=== PATIENT | female | born 2000 | race Caucasian/White ===

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

== ENCOUNTER 2021-01-07 08:40 | Outpatient (CLI) | payer BC, MEDICAID, SELFPAY ==
[2021-01-07 08:49] VITALS: BMI 24.1
[2021-01-07 08:56] VITALS: PULSE 67; TEMP 36.8; O2SAT 98
[2021-01-07 08:58] VITALS: BP 116/58
[2021-01-07 08:59] VITALS: PULSE 63; PULSE 8; O2SAT 82; O2SAT 97
[2021-01-07 09:52] LABS: Mucous, Urine 0 SEEN /hpf (<or=2+)
[2021-01-07 09:56] LABS: Color, Urine Yellow (Yellow); Glucose, Dipstick Normal (Normal); Ketone-Dipstick Negative (Negative); Leukocyte Esterase-Dipstick 25 /ul (Negative); Nitrite-Dipstick Negative (Negative); Occult Blood-Urine 250 /ul (Negative); Protein-Dipstick 500 mg/dl (Negative); Specific Gravity, Urine 1.015 (1.002-1.030); Urine Bilirubin Dipstick Negative (Negative); Urine Clarity Cloudy (Clear); Urine Urobilinogen Normal (Normal)
[2021-01-07 10:20] LABS: Red Blood Cells-Urine > 100 SEEN /hpf (0-5); Squamous Epithelial Cells - UA 0-5 SEEN /hpf (5-10); White Blood Cells 0-5 SEEN /hpf (0-5)
[2021-01-07 10:21] LABS: Bacteria RARE /hpf (None Seen)
--- NOTE | 2021-01-07 21:53 | OB.TRI.NOTE ---
HPI - General HPI Narrative DYLAN MIHCELLE, is a 20 F who presents at 25 4/7 weeks gestation with vaginal pain and pressure. PFSH PFSH Home Medications doxylamine succinate [Sleep Aid (doxylamine)] 25 mg PO PRN PRN 10/30/20 [History Last Taken Unknown] ondansetron 4 mg PO Q6H 10/30/20 [History Last Taken Unknown] [id number] [] 1 tab PO DAILY 10/30/20 [History Last Taken Unknown] promethazine 12.5 mg PO Q6H PRN PRN 10/30/20 [History Last Taken Unknown] pyridoxine (vitamin B6) [Vitamin B-6] 10/30/20 [History Last Taken Unknown] bacitracin 1 applic EACH EYE Q8H 7 Days #15 g 12/11/20 [Rx Last Taken Unknown] cephalexin 500 mg PO Q6H 7 Days #28 cap 12/11/20 [Rx Last Taken Unknown] gentamicin 1 applic RIGHT EYE BID #3.5 g 12/25/20 [Rx Last Taken Unknown] Allergy/AdvReac Type Severity Reaction Status Date / Time No Known Allergies Allergy Verified 12/10/20 22:34 Social History Smoking Status: Never smoker NST FHR Rate Baby A Baseline: 135 Variability:: Moderate Accelerations:: 10 x 10 Decelerations:: Variable NST Reactive:: Appropriate for gestational age FHR Rate Baby B Uterine Activity:: 0/10 Assessment & Plan (1) Cystitis: PLAN: No evidence of labor U/A suggests UTI Rx Macrobid sent to pharmacy d/c home
== END 2021-01-07 11:10 | disposition home or self-care (01) ==
LOC: WPOUT 08:44 → WP 08:45
PROVIDERS: PCP Preventive Medicine Occupational Medicine; Referring Provider Obstetrics & Gynecology; Visit Provider Obstetrics & Gynecology
DX: O23.12 Infections of bladder in pregnancy, second trimester (principal); Z3A.25 25 weeks gestation of pregnancy
CPT/HCPCS: 59025; 59050; 81001; 87086; 87088; 99218; G0378

== ENCOUNTER → 2021-03-21 | Outpatient (CLI) | payer BC, MEDICAID, SELFPAY | END | disposition home or self-care (01) | LOC: LABSPEC 11:50 | PROVIDERS: PCP Preventive Medicine Occupational Medicine; Visit Provider Student in an Organized Health Care Education/Training Program | DX: Z36.85 Encounter for antenatal screening for Streptococcus B (principal) | CPT/HCPCS: 87081 ==

== ENCOUNTER 2021-04-04 23:55 | Outpatient (CLI) | payer BC, MEDICAID, SELFPAY ==
[2021-04-05 00:13] VITALS: BP 131/74; PULSE 78; O2SAT 99
[2021-04-05 00:17] VITALS: TEMP 37.1
[2021-04-05 00:25] VITALS: BMI 27.6
[2021-04-05 00:48] LABS: ROM Internal Control Test YES-OK TO RESULT pt. (Internal QC); ROM Patient Test Negative (Negative)
--- NOTE | 2021-04-05 10:47 | OB.TRI.NOTE ---
HPI - General HPI Narrative DYLAN MICHELLE, is a 20 F who presents to labor and delivery with some leaking of fluid. Minimal contractions have been noted by the patient. PFSH PFSH Home Medications ondansetron 4 mg PO Q6H 10/30/20 [History Last Taken Unknown] [id number] [] 1 tab PO DAILY 10/30/20 [History Last Taken Unknown] Allergy/AdvReac Type Severity Reaction Status Date / Time No Known Allergies Allergy Verified 04/05/21 00:25 Social History Smoking Status: Never smoker NST FHR Rate Baby A NST Reactive:: Yes FHR Category:: Category I Assessment & Plan (1) Vaginal discharge during : PLAN: 38-week 4-day gestation with some leaking of fluid. Likely normal vaginal discharge during as ROM test was negative. May also be just some urine leaking. Reactive nonstress test. Will discharge to home with routine instructions.
== END 2021-04-05 01:05 | disposition home or self-care (01) ==
LOC: WPOUT 04-05 00:03 → WP 04-05 00:03
PROVIDERS: PCP Preventive Medicine Occupational Medicine; Visit Provider Obstetrics & Gynecology
DX: O26.893 Other specified pregnancy related conditions, third trimester (principal); N89.8 Other specified noninflammatory disorders of vagina; Z3A.38 38 weeks gestation of pregnancy
CPT/HCPCS: 59025; 59050; 84112; 99218; G0378

== ENCOUNTER → 2021-04-08 | Outpatient (CLI) | payer BC, MEDICAID, SELFPAY | END | disposition home or self-care (01) | LOC: LABSPEC 16:32 | PROVIDERS: PCP Preventive Medicine Occupational Medicine; Visit Provider Student in an Organized Health Care Education/Training Program | DX: Z20.822 Contact with and (suspected) exposure to COVID-19 (principal) | CPT/HCPCS: 87635; U0005; U0003 ==

== ENCOUNTER 2021-04-13 12:15 | Inpatient (IN) | payer BC, MEDICAID, SELFPAY ==
[2021-04-13] VITALS (29 sets, daily range): BP systolic 114–136; BP diastolic 58–84; PULSE 63–89; RESP 16–18; TEMP 36.1–36.9; O2SAT 97–100; BMI 27.3
--- NOTE | 2021-04-13 09:28 | PCM.PN.BLA ---
Progress Note 20-year-old G1 at 39/2 weeks presenting with contractions. Cervix 3 cm per RN on admission to triage, repeat in 2 hours also 3 cm. status reassuring, NST reactive. heart rate 125/moderate variability/+ accelerations/no decelerations. [place] irregular contractions. No evidence of active labor at this time. Patient has been 3 cm since her visit 1 week ago. Discharge home with labor precautions. All questions answered. She does have induction scheduled on Wednesday. Patient seen.
[2021-04-13] MEDS: Lactated Ringers 1,000 ML 200 ML IV (12:35)
[2021-04-13 12:55] LABS: Absolute Lymphocyte Count 1.56 X10^3/uL (0.83-4.51); Absolute Neutrophil Count 9.3 X10^3/uL (2.0-7.7); Basophil# 0.02 X10^3/uL; Basophil% 0.2 % (0-1); Eosinophil# 0.03 X10^3/uL; Eosinophils% 0.3 % (0-5); Hematocrit 32.3 % (37-47); Hemoglobin 10.6 g/dL (12.0-15.0); Lymphocyte # 1.56 X10^3/ul (0.83-4.51); Lymphocyte % 13.5 % (19-41); Mean Corp Hgb Conc 32.8 g/dL (32-36); Mean Corpuscular Hgb 28.3 pg (27.0-32.0); Mean Corpuscular Volume 86.4 fL (81-99); Mean Platelet Vol. 11.1 fl (6.2-12.0); Monocyte# 0.61 X10^3/uL; Monocyte% 5.3 % (0-10); NRBC Flagged by Analyzer 0 % (0-5); Neutrophil # 9.27 X10^3/uL (2.7-7.7); Neutrophil % 80.3 % (47-70); Platelet Count 279 K/mm3 (150-450); RBC Distribution Width CV 12.8 % (11.6-14.6); Red Blood Count 3.74 M/mm3 (4.2-5.4); White Blood Count 11.5 K/mm3 (4.4-11.0)
[2021-04-13] MEDS: Oxytocin 30 units/NS 500 ml 30 UNITS/500 ML IV.SOLN 334 UNITS IV (13:20)
--- NOTE | 2021-04-13 13:38 | PCM.HP.BLA ---
History and Physical Date of Admission: 04/13/21 20-year-old G1 at 39/2 weeks, ALEENA 04/18/2021 by 5-week ultrasound, admitted in active labor. Patient reports rupture membranes and worsening contractions. Denies vaginal bleeding. Reports movement. Denies headache, vision changes, chest pain or shortness of breath, nausea or vomiting, diarrhea constipation, fevers or chills. complicated by: Nothing OB history: G1 Medical history: Denies Surgical history: None Allergies no known drug allergies Family history: Noncontributory Social history: Denies tobacco, alcohol, drug use Medications: vitamin, Zofran panel B positive HIV nonreactive Syphilis nonreactive Hepatitis C nonreactive Hepatitis B nonreactive Gonorrhea and chlamydia negative/negative GBS neg 03/21 Rubella immune CBC today: WBC 11.5, hemoglobin/hematocrit 10.6/32.3, platelets 279 Assessment/plan: 20-year-old G1 at 39/2 weeks admitted in active labor. Routine orders GBS negative Covid negative today Assessment & Plan Assessment/Plan (1) Active labor:
--- NOTE | 2021-04-13 13:44 | EX.PCM.OBRPT ---
Maternal Data Information Final ALEENA: 04/18/21 Final ALEENA Source: US <20 weeks Vaginal Delivery Operative Information Date of Procedure: 04/13/21 Pre-Operative Diagnosis: [place] intrauterine Post-Operative Diagnosis: [place] intrauterine Surgery / Procedure Performed: Spontaneous Vaginal Delivery Type of Anesthesia: None Estimated Blood Loss: 250cc Findings Description of Procedure: Spontaneous vaginal delivery of viable infant female. Nuchal cord x1, loose, delivered through. Baby to mom. Cord clamped and cut. Spontaneous delivery of placenta. Bilateral labial abrasions, hemostatic. Small non expanding hematoma of labia. Infant A Gender: Female (1 minute): 8 (5 minute): 9
[2021-04-13] MEDS: 0.9% Saline Lock 10 ML Syringe IV (16:45)
[2021-04-14] VITALS (7 sets, daily range): BP systolic 109–117; BP diastolic 53–55; PULSE 59–74; RESP 16–18; TEMP 36.2–36.5; O2SAT 97
--- NOTE | 2021-04-14 00:52 | PN.OBGYN_ITS ---
Subjective Subjective day 1. Feeling well. States she had some burning with urination the first couple times she voided, this is resolved. Bleeding minimal. Objective Data Objective Data Vital Signs: Vital Signs Temp Pulse Resp BP Pulse Ox 98.2 F 72 16 115/67 97 04/13/21 23:42 04/13/21 23:42 04/13/21 20:21 04/13/21 23:42 04/13/21 20:21 Oxygen Delivery Method Room Air Weight: 69.853 kg Body Mass Index (BMI) 27.3 Intake & Output: Intake and Output for Last 24 Hours 04/12/21 04/13/21 04/14/21 23:59 23:59 23:59 Intake Total 650 / 650 Output Total 200 / 200 Balance 450 / 450 Lab / Micro Data Result Diagrams: 04/13/21 12:35 Labs: Laboratory Results - last 24 hr 04/13/21 12:35: WBC 11.5 H, RBC 3.74 L, Hgb 10.6 L, Hct 32.3 L, MCV 86.4, MCH 28.3, MCHC 32.8, RDW Std Deviation 40.0, RDW Coeff of Franc 12.8, Plt Count 279, MPV 11.1, Immature Gran % (Auto) 0.400, Neut % (Auto) 80.3 H, Lymph % (Auto) 13.5 L, [place] % (Auto) 5.3, Eos % (Auto) 0.3, Baso % (Auto) 0.2, Absolute Neuts (auto) 9.3 H, Absolute Lymphs (auto) 1.56, Nucleated RBC % 0 04/13/21 12:35: Blood Type B POSITIVE, Antibody Screen NEGATIVE Micro: Microbiology 04/13/21 12:45 Nasal Secretion SARS-CoV-2 Antigen (Rapid) - Final Physical Exam Const alert, oriented x3 and no apparent distress HEENT normocephalic Head and Scalp: atraumatic Neck full ROM Resp normal respiratory effort Cardio regular rate GI normal to inspection, nondistended, normoactive bowel sounds GI Narrative: Uterus 2 cm below umbilicus Back/Spine normal ROM Extremity normal to inspection Extremity Narrative: Minimal pedal edema Neuro no focal motor deficits and no sensory deficits noted Psych mental status grossly normal and affect normal Assessment & Plan (1) Vaginal delivery: PLAN: day 1 status post . Formula feeding. Desires home- going today. Will discharge later this afternoon/early evening. 2-week telehealth visit in 6-week . (2) state:
--- NOTE | 2021-04-14 00:54 | PCM.DC ---
Discharge Instructions Diet Discharge Diet: No restrictions Activity Discharge Activity: Return to Normal Activity and May Shower May resume sexual activity in: 4-6 weeks Weight Bearing Status: Weight bearing as tolerated Lifting Restrictions: No greater than 25 pounds Dressing / Incision Call your doctor if you observe: Fever of 101 or Higher, Change in Color, Inability to urinate, Using more than 1 pad per hour, Shortness of breath, Dizziness, Swelling in the ankles, Chest pain and Calf discomfort Follow Up Care Please Follow Up With: Una Hampton DO When: 2-week telehealth appointment and 6-week visit Test Results: Test results from this visit will be discussed in further detail at your follow-up appointment, if applicable. Discharge Plan Admission Admit Date/Time: 04/13/21 12:15 Attending Provider: Una Hampton Primary Care Provider: Nicholas Cespedes Discharge Orders/Prescriptions Prescriptions: No Action 1 mg Tablet 1 tab PO DAILY RF: 0 ondansetron 4 mg tablet,disintegrating 4 mg PO Q6H RF: 0 Referrals / Follow Up: Nicholas Cespedes DO [Primary Care Provider] - Disposition Disposition (needs filled in before D/C Order can be placed): Home, Self Care
--- NOTE | 2021-04-14 14:30 | CASEMGMT ---
Social Work Brief Assessment Labor and Delivery Unit Patient residential address: [address] [place] [address]., [address], [place] [id number] Phone number: [phone] Date of Referral/Notification: 04/13/2021 Time of Referral: [id number] Referred By: Dr. Una Hampton Date of Intervention: 04/14/2021 Time of Intervention: 1415 F Reason for Referral: 20-year-old mom, first-time mom, resources Informant: Medical record and mother of baby (MOB) Johnathan Waters History: MOB is a 20-year-old single female, 1 para 0 now 1 after delivering a baby girl Janelle Bro on 04/13/2021. Father of baby alberto FOB) is Maximiliano Bro ( 2..2000). Parents have been together for 2 years. MOB denies violence. Both parents are employed with the MOB most recently working at a local [employer]. care started at 6 weeks and regularly thereafter. Infant delivered at 39 point weeks gestation. Apgars 8 and 9 at 1 and 5 minutes of life. weight 5 pounds 14 ounces. MOB has a high school education and denies any issues with reading, writing, or learning. MOB denies any type of emotional health history and no history of suicidal ideations. History of substance use. No drug screens noted in record. MOB reports to have Medicaid and WIC Assessment: Met with MOB in room, introducing self and social work role. MOB cooperative and pleasant. Appropriate affect and mood. MOB reports to have all necessary supplies to care for the baby including safe sleep space and car seats. MOB to bottlefeed the baby, and reports to have bottles and formula. Plans to use [facility] for assistance with this. Reports to have adequate support from both sides of the family, MOB's and FOB's. Reports to feel connection with the baby and denies any anxiety. Educated to mood and anxiety disorders. He had shaken baby and safe sleep as well. MOB receptive to early [facility] referral for increased support at home. MOB signed early [facility] referral form. Fax referral form to confirm fax community action. No voiced concerns by nursing staff regarding parent/child interactions or bonding. Plan: MOB and will discharge home when medically ready. MOB is connected with job and family services and [facility]. Early [facility] referral was made. No further needs requested or indicated. -AIDAN Escalera, CINDI *This note was generated with Edúk[employer] dictation software. It may contain incorrect words, spelling, and punctuation that were not noted in review of the chart prior to signing*
== END 2021-04-14 15:20 | disposition home or self-care (01) | DRG 807 ==
LOC: WPOUT 12:18 → WP 12:18
PROVIDERS: Admitting Provider Student in an Organized Health Care Education/Training Program; PCP Preventive Medicine Occupational Medicine; Visit Provider Student in an Organized Health Care Education/Training Program
DX: O69.81X0 Labor and delivery complicated by cord around neck, without compression, not applicable or unspecified (principal); Z37.0 Single live birth; Z3A.39 39 weeks gestation of pregnancy; O71.82 Other specified trauma to perineum and vulva; R30.9 Painful micturition, unspecified
CPT/HCPCS: 59025; 85025; 86850; 86900; 86901; 87426; 99218; J7120; A4216; G0378

== ENCOUNTER 2021-05-05 03:25 | Emergency (ER) | payer BC, MEDICAID, SELFPAY ==
[2021-05-05 03:26] VITALS: BP 128/81; PULSE 89; RESP 16; TEMP 36.6; O2SAT 98; BMI 25.1
--- NOTE | 2021-05-05 03:37 | ED.VIS.FEGU ---
HPI HPI - Female History of Present Illness Chief Complaint: Vag Bleeding Narrative Narrative: This is a 1 para 1 female who delivered at about 39 weeks 3 days gestation. Infant was delivered 3 weeks and 1 day ago per patient. She had abrasion and not expanding hematoma but no episiotomy or sutures. She has had bleeding ever since delivery. She had some more bleeding tonight with some clots. She is not having fevers or chills. No abdominal pelvic pain. No lightheadedness. No palpitations. She did have spontaneous delivery of placenta per the delivery report. She is not on any control, IUD, implantable control. She did have sexual intercourse yesterday but had no discomfort or problems. PFSH PFSH Home Medications [id number] [] 1 tab PO DAILY 10/30/20 [History Last Taken Unknown] Allergy/AdvReac Type Severity Reaction Status Date / Time No Known Allergies Allergy Verified 05/05/21 03:29 Social History Smoking Status: Never smoker ROS ROS ED Constitutional Constitutional ED: Denies chills, fever(s), subjective or sweats Eyes Eyes: Denies blurry vision ENT ENT ED: Denies rhinorrhea Cardiovascular Cardiovascular: Denies chest pain Respiratory/Chest Respiratory/Chest: Denies cough or dyspnea Gastrointestinal Gastrointestinal: Denies abdominal pain, constipation, diarrhea, melena, nausea or vomiting Genitourinary Genitourinary ED: Reports other Details: See history of present illness ; Denies dysuria, hematuria or urinary frequency Musculoskeletal Musculoskeletal: Denies myalgias Neurologic Neurologic: Denies headache(s) Endocrine Endocrinology: Denies polydipsia or polyuria Hematologic/Lymphatic Hematologic/Lymphatic: Denies easy bruising Allergic/Immunologic Allergic/Immunologic ED: Denies mouth swelling or urticaria EXAM Physical Exam Const Vital Signs: 05/05/21 03:26 Temperature 97.8 F Temperature Source Temporal Pulse Rate 89 Respiratory Rate 16 Blood Pressure 128/81 H Blood Pressure Mean 96 Pulse Ox 98 Oxygen Delivery Method Room Air Positive well nourished and well developed General Appearance ED: well developed and NAD; Negative for pallor HEENT Reports moist mucous membranes Eyes General Eye ED: Negative for pale conjunctiva or scleral icterus Neck no JVD Chest Wall inspection of chest normal Resp normal respiratory effort and clear to auscultation bilaterally Cardio regular rate and regular rhythm GI normal to inspection, nondistended, normoactive bowel sounds, soft to palpation, non-tender and non-distended no CVA tenderness Back/Spine no CVA tenderness Extremity normal to inspection General Extremety ED: Negative for edema General Extremity: Negative for edema Neuro Sensorium / Orientation: alert Psych mental status grossly normal Mood & Affect: Negative for depressed or tearful Skin no rashes or lesions noted General Skin Exam: Negative for jaundice or pallor MDM MDM MDM Narrative Medical decision making narrative: Patient CBC shows mild elevation of white count and decreased hemoglobin. However, these are essentially the same values as at the end of March at around the time of childbirth. hormone is negative for with a quant of 2. Pelvic exam shows normal external genitalia. No tears. No hematoma. No vaginal lacerations. There is a small amount of blood at the cervical os with some small darker clot. No blood is expressed with palpation on the uterus during exam. There is no tenderness on exam. No sign of discharge. No abnormal odor. No injuries. I think this is likely bleeding as she patient has hormonal changes related to and development of return of menstrual cycle. She is on no control and is not breast-feeding. I think discharge is appropriate. She will return with heavier bleeding, more clots, fever, pain, lightheadedness or any other concerns. She has her follow-up OB appointment in about 2-1/2 weeks. Lab Data Labs: Laboratory Results - last 24 hr 05/05/21 05/05/21 03:50 03:50 WBC 11.8 H RBC 3.95 L Hgb 10.8 L Hct 34.9 L MCV 88.4 MCH 27.3 MCHC 30.9 L RDW Std Deviation 42.1 RDW Coeff of Franc 13.0 Plt Count 352 MPV 10.7 Immature Gran % (Auto) 0.300 Neut % (Auto) 81.3 H Lymph % (Auto) 13.9 L Atkinson % (Auto) 3.8 Eos % (Auto) 0.4 Baso % (Auto) 0.3 Absolute Neuts (auto) 9.6 H Absolute Lymphs (auto) 1.64 Nucleated RBC % 0 HCG, Quant 2 Discharge Plan Triage Chief Complaint: Vag Bleeding ED Provider: Erik Todd Dx/Rx/DC Orders Clinical Impression: Vaginal bleeding Instructions: Understanding Uterine Bleeding Prescriptions: No Action 1 mg Tablet 1 tab PO DAILY RF: 0 Primary Care Provider: Nicholas Cespedes Referrals: Una Hampton DO [STAFF PHYSICIAN] - [facility] appointment Nicholas Cespedes DO [Primary Care Provider] - Disposition Disposition: Home, Self Care
[2021-05-05 04:04] LABS: Absolute Lymphocyte Count 1.64 X10^3/uL (0.83-4.51); Absolute Neutrophil Count 9.6 X10^3/uL (2.0-7.7); Basophil# 0.04 X10^3/uL; Basophil% 0.3 % (0-1); Eosinophil# 0.05 X10^3/uL; Eosinophils% 0.4 % (0-5); Hematocrit 34.9 % (37-47); Hemoglobin 10.8 g/dL (12.0-15.0); Lymphocyte # 1.64 X10^3/ul (0.83-4.51); Lymphocyte % 13.9 % (19-41); Mean Corp Hgb Conc 30.9 g/dL (32-36); Mean Corpuscular Hgb 27.3 pg (27.0-32.0); Mean Corpuscular Volume 88.4 fL (81-99); Mean Platelet Vol. 10.7 fl (6.2-12.0); Monocyte# 0.45 X10^3/uL; Monocyte% 3.8 % (0-10); NRBC Flagged by Analyzer 0 % (0-5); Neutrophil # 9.55 X10^3/uL (2.7-7.7); Neutrophil % 81.3 % (47-70); Platelet Count 352 K/mm3 (150-450); RBC Distribution Width SD 42.1 fl (35.1-43.9); Red Blood Count 3.95 M/mm3 (4.2-5.4); White Blood Count 11.8 K/mm3 (4.4-11.0)
[2021-05-05 04:24] LABS: hCG Titer Quant., Serum 2 mIU/mL (1-3)
[2021-05-05 04:53] VITALS: BP 118/78; PULSE 88; RESP 16; O2SAT 98
== END 2021-05-05 04:54 | disposition home or self-care (01) ==
PROVIDERS: Emergency Provider Emergency Medicine; PCP Preventive Medicine Occupational Medicine; Visit Provider Emergency Medicine
DX: N93.9 Abnormal uterine and vaginal bleeding, unspecified (principal)
CPT/HCPCS: 84702; 85025; 99283

== ENCOUNTER → 2021-10-27 | Outpatient (CLI) | payer MEDICAID, SELFPAY ==
[2021-10-27 17:12] LABS: Absolute Lymphocyte Count 1.44 X10^3/uL (0.83-4.51); Absolute Neutrophil Count 4.9 X10^3/uL (2.0-7.7); Basophil# 0.02 X10^3/uL; Basophil% 0.3 % (0-1); Eosinophil# 0.04 X10^3/uL; Eosinophils% 0.6 % (0-5); Hematocrit 35.6 % (37-47); Hemoglobin 10.7 g/dL (12.0-15.0); Lymphocyte # 1.44 X10^3/ul (0.83-4.51); Lymphocyte % 20.8 % (19-41); Mean Corp Hgb Conc 30.1 g/dL (32-36); Mean Platelet Vol. 11.3 fl (6.2-12.0); Monocyte# 0.53 X10^3/uL; Monocyte% 7.7 % (0-10); NRBC Flagged by Analyzer 0 % (0-5); Neutrophil # 4.86 X10^3/uL (2.7-7.7); Neutrophil % 70.3 % (47-70); Platelet Count 299 K/mm3 (150-450); RBC Distribution Width CV 18.2 % (11.6-14.6); RBC Distribution Width SD 53.2 fl (35.1-43.9); Red Blood Count 4.45 M/mm3 (4.2-5.4); White Blood Count 6.9 K/mm3 (4.4-11.0)
[2021-10-27 18:11] LABS: HIV - WCH Non-Reactive (Nonreactive); Hepatitis B Surface Antigen Non-Reactive (Nonreactive); Hepatitis C Antibody Non-Reactive (Nonreactive); Rubella IgG Reactive (Nonreactive); Syphilis Antibodies Non-reactive
[2021-10-30 00:07] LABS: Chlamydia By Nucleic Acid AMP Negative (Negative)
[2021-10-30 16:25] LABS: Gonococcus By Nucleic Acid AMP Negative (Negative)
== END | disposition home or self-care (01) ==
LOC: WOBLAB 15:48
PROVIDERS: PCP Preventive Medicine Occupational Medicine; Visit Provider Obstetrics & Gynecology
DX: Z34.81 Encounter for supervision of other normal pregnancy, first trimester (principal)
CPT/HCPCS: 36415; 85025; 86703; 86762; 86780; 86803; 87086; 87088; 87340; 87491; 87591

== ENCOUNTER → 2022-03-23 | Outpatient (CLI) | payer MEDICAID, SELFPAY ==
[2022-03-23 16:56] LABS: Hematocrit 30.1 % (37-47); Hemoglobin 9.6 g/dL (12.0-15.0); Mean Corp Hgb Conc 31.9 g/dL (32-36); Mean Corpuscular Hgb 27.3 pg (27.0-32.0); Mean Corpuscular Volume 85.5 fL (81-99); Mean Platelet Vol. 10.4 fl (6.2-12.0); Platelet Count 298 K/mm3 (150-450); RBC Distribution Width CV 14.8 % (11.6-14.6); RBC Distribution Width SD 46.2 fl (35.1-43.9); Red Blood Count 3.52 M/mm3 (4.2-5.4); White Blood Count 6.8 K/mm3 (4.4-11.0)
[2022-03-23 17:56] LABS: Glucose Challenge Gest 1H 50g 84 mg/dL (70-140)
== END | disposition home or self-care (01) ==
LOC: WOBLAB 16:18
PROVIDERS: PCP Preventive Medicine Occupational Medicine; Visit Provider Student in an Organized Health Care Education/Training Program
DX: Z34.83 Encounter for supervision of other normal pregnancy, third trimester (principal)
CPT/HCPCS: 36415; 82950; 85027

== ENCOUNTER → 2022-05-18 | Outpatient (CLI) | payer MEDICAID, SELFPAY ==
[2022-05-18 16:04] LABS: Absolute Lymphocyte Count 1.74 X10^3/uL (0.83-4.51); Absolute Neutrophil Count 4.4 X10^3/uL (2.0-7.7); Basophil# 0.02 X10^3/uL; Basophil% 0.3 % (0-1); Eosinophil# 0.06 X10^3/uL; Eosinophils% 0.9 % (0-5); Hematocrit 29.2 % (37-47); Hemoglobin 8.8 g/dL (12.0-15.0); Lymphocyte # 1.74 X10^3/ul (0.83-4.51); Mean Corp Hgb Conc 30.1 g/dL (32-36); Mean Corpuscular Hgb 24.4 pg (27.0-32.0); Mean Corpuscular Volume 81.1 fL (81-99); Mean Platelet Vol. 10.9 fl (6.2-12.0); Monocyte# 0.44 X10^3/uL; Monocyte% 6.6 % (0-10); NRBC Flagged by Analyzer 0 % (0-5); Neutrophil # 4.39 X10^3/uL (2.7-7.7); Neutrophil % 65.6 % (47-70); Platelet Count 283 K/mm3 (150-450); RBC Distribution Width CV 15.1 % (11.6-14.6); RBC Distribution Width SD 44.3 fl (35.1-43.9); White Blood Count 6.7 K/mm3 (4.4-11.0)
[2022-05-18 17:12] LABS: Syphilis Antibodies Non-reactive
[2022-05-22 12:21] LABS: Ferritin 4 ng/mL (8-252)
== END | disposition home or self-care (01) ==
LOC: WOBLAB 15:36
PROVIDERS: PCP Preventive Medicine Occupational Medicine; Visit Provider Student in an Organized Health Care Education/Training Program
DX: O99.013 Anemia complicating pregnancy, third trimester (principal)
CPT/HCPCS: 36415; 82728; 85025; 86780; 87081

== ENCOUNTER 2022-05-25 16:20 | Outpatient (CLI) | payer MEDICAID, SELFPAY ==
[2022-05-25] VITALS (27 sets, daily range): BP systolic 122; BP diastolic 70; PULSE 74–100; TEMP 36.8; O2SAT 98–100; BMI 27.8
--- NOTE | 2022-05-26 11:48 | PCM.PN.OB ---
Subjective Subjective 21-year-old G2, P1 at 37/2 weeks sent to labor and delivery for extended monitoring. Broken variable deceleration once in office. Patient reports irregular cramping, was 1 cm in office. No leaking or bleeding. Reported movement. Objective Data Objective Data Vital Signs: Vital Signs Temp Pulse BP Pulse Ox 98.3 F 88 122/70 H 99 05/25/22 16:36 05/25/22 19:10 05/25/22 16:36 05/25/22 19:10 Weight: 73.482 kg Body Mass Index (BMI) 27.8 NST FHR Rate Baby A Baseline: 125 Variability:: Moderate Accelerations:: 15 x 15 Decelerations:: None NST Reactive:: Yes Assessment & Plan (1) growth restriction: PLAN: Extended monitoring reassuring. NST reactive. Patient has MFM follow-up on Wednesday. Emphasized follow-up with MFM. Patient declined repeat check of cervical exam. Patient has induction of labor planned on 06/01 for growth restriction.
== END 2022-05-25 19:24 | disposition home or self-care (01) ==
LOC: WPOUT 16:34 → WP 16:35
PROVIDERS: PCP Preventive Medicine Occupational Medicine; Referring Provider Student in an Organized Health Care Education/Training Program; Visit Provider Student in an Organized Health Care Education/Training Program
DX: O36.8330 Maternal care for abnormalities of the fetal heart rate or rhythm, third trimester, not applicable or unspecified (principal); O36.5930 Maternal care for other known or suspected poor fetal growth, third trimester, not applicable or unspecified; Z3A.37 37 weeks gestation of pregnancy
CPT/HCPCS: 59050; 99221; G0378

== ENCOUNTER → 2022-05-29 | Outpatient (CLI) | payer MEDICAID, SELFPAY ==
[2022-05-29 18:00] LABS: ALB/GLOB Ratio 0.5 RATIO (0.9-2.4); AST(SGOT) 7 U/L (15-37); Alanine Aminotransfer ALT/SGPT 11 U/L (13-56); Albumin, Serum 2.3 g/dL (3.2-5.0); Alkaline Phosphatase 152 U/L (45-117); Anion Gap 7 (5-15); BUN 8 mg/dL (7-18); BUN/Creat Ratio 13.7 RATIO (10-20); Calcium,Total 8.5 mg/dL (8.5-10.1); Chloride 108 mmol/L (98-107); Creatinine, Serum 0.58 mg/dL (0.55-1.02); EST Glomerular Filtration Rate 138 mL/min (>60); Est Glom Filt Rate - Afr Amer 167 mL/min (>60); Globulin 4.5 g/dL (2.2-4.2); Glucose 82 mg/dL (74-106); Potassium 3.9 mmol/L (3.5-5.1); Protein, Total 6.8 g/dL (6.4-8.2); Sodium Level 138 mmol/L (136-145)
== END | disposition home or self-care (01) ==
PROVIDERS: PCP Preventive Medicine Occupational Medicine; Visit Provider Student in an Organized Health Care Education/Training Program
DX: Z34.83 Encounter for supervision of other normal pregnancy, third trimester (principal)
CPT/HCPCS: 36415; 80053

== ENCOUNTER 2022-06-03 12:30 | Inpatient (IN) | payer MEDICAID, SELFPAY ==
[2022-06-03] VITALS (23 sets, daily range): BP systolic 115–127; BP diastolic 56–67; PULSE 75–107; TEMP 36.7–37.4; O2SAT 84–99; BMI 27.6
[2022-06-03] MEDS: Lactated Ringers 1,000 ML 50 ML IV (13:05)
[2022-06-03] MEDS: LACTATED RINGERS 500 ML 999 ML IV ×5 (13:10→22:40)
[2022-06-03 13:33] LABS: Absolute Lymphocyte Count 1.44 X10^3/uL (0.83-4.51); Absolute Neutrophil Count 4.8 X10^3/uL (2.0-7.7); Basophil# 0.02 X10^3/uL; Basophil% 0.3 % (0-1); Eosinophil# 0.05 X10^3/uL; Eosinophils% 0.7 % (0-5); Hemoglobin 8.9 g/dL (12.0-15.0); Lymphocyte # 1.44 X10^3/ul (0.83-4.51); Lymphocyte % 21.2 % (19-41); Mean Corp Hgb Conc 30.7 g/dL (32-36); Mean Corpuscular Hgb 24.8 pg (27.0-32.0); Mean Corpuscular Volume 80.8 fL (81-99); Mean Platelet Vol. 11.5 fl (6.2-12.0); Monocyte# 0.47 X10^3/uL; Monocyte% 6.9 % (0-10); NRBC Flagged by Analyzer 0 % (0-5); Neutrophil # 4.79 X10^3/uL (2.7-7.7); Neutrophil % 70.5 % (47-70); Platelet Count 291 K/mm3 (150-450); RBC Distribution Width CV 15.5 % (11.6-14.6); RBC Distribution Width SD 45.1 fl (35.1-43.9); Red Blood Count 3.59 M/mm3 (4.2-5.4); White Blood Count 6.8 K/mm3 (4.4-11.0)
[2022-06-03] MEDS: Oxytocin 15 Units/NS 250ml 15 UNITS/250 ML IV.SOLN 2 UNITS IV (14:52)
--- NOTE | 2022-06-03 17:43 | PCM.HP.BLA ---
History and Physical Date of Admission: 06/03/22 Chief complaint: Induction of labor nonreassuring heart tones History present illness: 21-year-old G2, P1 at 38 weeks and 4 days with ALEENA 06/13/2022 arrives for induction of labor with nonreassuring heart tones and oligohydramnios. Denies headache, visual changes, chest pain, shortness of breath, nausea vomit, right upper quadrant pain. Patient states good movement. is complicated by oligohydramnios Obstetric history: G1: 39-week female 5 pounds 14 ounces G2: Current Past medical history: None Medications: vitamin Past surgical history: None Social history: Denies smoking, alcohol use, drug use Family history: Denies history DVT or PE Review of systems: Besides above pertinent positives for review of systems was performed and found to be negative Physical exam: Vitals: Blood pressure 116/63 pulse 75 General: Normal-appearing no acute distress HEENT: Normocephalic/atraumatic cervical lymphadenopathy Cardiac/respiratory: No use of accessory muscles, nonlabored breathing Abdomen: Soft, nontender, gravid Cervical exam: 50/-3 AROM clear fluid. IUPC placed. Failed to place FSE Extremities: No peripheral edema normal peripheral pulses Psych: Normal affect and demeanor nonpressured speech Labs: White blood cell count 6.8 hemoglobin 8.9 hematocrit 29.0% platelets 291. Blood type B+ antibody negative Assessment plan: 21-year-old G2, P1 at 38 weeks and 4 days arrives for induction of labor with nonreassuring heart tones and ongoing hydramnios CEFM GBS negative AROM clear fluid will augment with Pitocin. Called by nursing with nonpersistent moments of variable decelerations. Will restart Pitocin when category 1 tracing
[2022-06-03] MEDS: Lactated Ringers 1,000 ML 200 ML IV (19:40)
[2022-06-03] MEDS: fentaNYL 100 MCG/2 ML Ampul IV (21:55)
[2022-06-03] MEDS: Ondansetron 4 MG/2 ML Vial IV (22:25)
[2022-06-04] VITALS (15 sets, daily range): BP systolic 100–132; BP diastolic 41–82; PULSE 30–86; RESP 16; TEMP 36.4–36.9; O2SAT 82–99
--- NOTE | 2022-06-04 00:37 | EX.PCM.OBRPT ---
Vaginal Delivery Findings Description of Procedure: Called to room by nursing for delivery. Arrived with patient not following verbal commands with contractions. Continued to not push during contractions after decelerations. Encouraged pushing with contractions to increase progress of delivery. Patient continues to decline with discomfort. With pushing, normal spontaneous vaginal delivery of a viable female infant, vertex MONIKA. Head and shoulders delivered with ease. Cord clamped and cut. Baby handed off to patient. Placenta delivered via cord traction and fundal massage, intact. IV oxytocin initiated to facilitate uterine contractions. No lacerations noted. Patient initially wanted immediate IUD, patient declines at this time states she will get IUD at visit. EBL 250 cc Apgars 8/9
[2022-06-04] MEDS: Acetaminophen 500 MG Tablet 1000 MG PO (01:15)
[2022-06-04] MEDS: Benzocaine/Lanolin/Aloe Vera 1 SPRAY EACH TOPICAL (01:21)
[2022-06-05 00:28] VITALS: BP 100/59; PULSE 64; RESP 16; TEMP 36.9; O2SAT 98
[2022-06-05] MEDS: Ibuprofen 600 MG Tablet PO (00:35)
--- NOTE | 2022-06-05 08:28 | PCM.PN.OB ---
Subjective Subjective Lochia minimal. Patient feeling well. No dizziness or lightheadedness. Objective Data Objective Data Vital Signs: Vital Signs Temp Pulse Resp BP Pulse Ox O2 Del Method 98.5 F 64 16 100/59 L 98 Room Air 06/05/22 00:28 06/05/22 00:28 06/05/22 00:28 06/05/22 00:28 06/05/22 00:28 06/05/22 00:28 Oxygen Delivery Method Room Air Weight: 73 kg Body Mass Index (BMI) 27.6 Intake & Output: Intake and Output for Last 24 Hours 06/03/22 06/04/22 06/05/22 23:59 23:59 23:59 Intake Total 3510.24 / 3510.24 739.76 / 739.76 Output Total 1550 / 1550 550 / 550 Balance 1960.24 / 1960.24 189.76 / 189.76 Lab / Micro Data Result Diagrams: 06/03/22 13:05 Physical Exam Const alert, oriented x3 and no apparent distress HEENT normocephalic Head and Scalp: atraumatic Neck full ROM Resp normal respiratory effort Cardio regular rate GI normal to inspection, nondistended, normoactive bowel sounds GI Narrative: Uterus 2 cm below umbilicus Back/Spine normal ROM Extremity normal to inspection Extremity Narrative: Minimal pedal edema Neuro no focal motor deficits and no sensory deficits noted Psych mental status grossly normal and affect normal Assessment & Plan (1) Vaginal delivery: PLAN: day 1 status post . Iron deficiency anemia, stable over the past couple weeks. Patient had been scheduled for Venofer infusion yesterday, however delivered prior to appointment time. Patient is declining Venofer at this time. Will iron supplement on home-going. Vitals are stable and she is asymptomatic. Minimal bleeding at time of delivery. Stable for discharge home today. (2) state:
--- NOTE | 2022-06-05 08:30 | DCINST_ITS ---
Discharge Instructions Diet Discharge Diet: No restrictions Activity Discharge Activity: Return to Normal Activity and May Shower May resume sexual activity in: 4-6 weeks Weight Bearing Status: Weight bearing as tolerated Lifting Restrictions: No greater than 25 pounds Dressing / Incision Call your doctor if you observe: Fever of 101 or Higher, Change in Color, Inability to urinate, Using more than 1 pad per hour, Shortness of breath, Dizziness, Swelling in the ankles, Chest pain and Calf discomfort Follow Up Care Please Follow Up With: Una Hampton DO When: 6-week visit Test Results: Test results from this visit will be discussed in further detail at your follow- up appointment, if applicable. Discharge Plan Admission Admit Date/Time: 06/03/22 12:30 Primary Reason for Your Visit: Vaginal delivery Attending Provider: Mukesh Hampton Primary Care Provider: Nicholas Cespedes Discharge Orders/Prescriptions Prescriptions: No Action 1 mg Tablet 1 tab PO DAILY aspirin [Aspirin Child] 81 mg Tablet,Chewable 81 mg PO PRN Referrals / Follow Up: Nicholas Cespedes DO [Primary Care Provider] - Disposition Disposition (needs filled in before D/C Order can be placed): Home, Self Care
[2022-06-05 08:39] VITALS: BP 95/49; PULSE 61; RESP 16; TEMP 36.5; O2SAT 97
[2022-06-05 11:10] VITALS: RESP 16
== END 2022-06-05 11:15 | disposition home or self-care (01) | DRG 560 ==
PROVIDERS: Admitting Provider Obstetrics & Gynecology; PCP Preventive Medicine Occupational Medicine; Visit Provider Obstetrics & Gynecology
DX: O76 Abnormality in fetal heart rate and rhythm complicating labor and delivery (principal); Z37.0 Single live birth; O41.03X0 Oligohydramnios, third trimester, not applicable or unspecified; D50.9 Iron deficiency anemia, unspecified; O99.02 Anemia complicating childbirth; Z3A.39 39 weeks gestation of pregnancy
CPT/HCPCS: 59025; 59050; 85025; 86850; 86900; 86901; 99221; J7120; G0378; J2405

== ENCOUNTER → 2022-08-20 | Outpatient (CLI) | payer MEDICAID, SELFPAY ==
[2022-08-20 12:11] LABS: Absolute Lymphocyte Count 1.78 X10^3/uL (0.83-4.51); Absolute Neutrophil Count 3.1 X10^3/uL (2.0-7.7); Basophil# 0.03 X10^3/uL; Basophil% 0.6 % (0-1); Eosinophil# 0.06 X10^3/uL; Eosinophils% 1.1 % (0-5); Hematocrit 40.8 % (37-47); Hemoglobin 12.6 g/dL (12.0-15.0); Lymphocyte # 1.78 X10^3/ul (0.83-4.51); Lymphocyte % 32.7 % (19-41); Mean Corp Hgb Conc 30.9 g/dL (32-36); Mean Corpuscular Hgb 25.7 pg (27.0-32.0); Mean Corpuscular Volume 83.3 fL (81-99); Mean Platelet Vol. 10.5 fl (6.2-12.0); Monocyte# 0.43 X10^3/uL; Monocyte% 7.9 % (0-10); NRBC Flagged by Analyzer 0 % (0-5); Neutrophil # 3.13 X10^3/uL (2.7-7.7); Neutrophil % 57.3 % (47-70); Platelet Count 304 K/mm3 (150-450); RBC Distribution Width CV 16.3 % (11.6-14.6); RBC Distribution Width SD 49.8 fl (35.1-43.9); White Blood Count 5.5 K/mm3 (4.4-11.0)
[2022-08-20 12:52] LABS: T4 Free Direct 1.31 ng/dL (0.76-1.46); Thyroid Stim Hormone (TSH) 2.28 uIU/mL (0.358-3.74)
== END | disposition home or self-care (01) ==
LOC: WOBLAB 12:00
PROVIDERS: PCP Preventive Medicine Occupational Medicine; Visit Provider Nurse Practitioner Women's Health
DX: D64.9 Anemia, unspecified (principal)
CPT/HCPCS: 36415; 84439; 84443; 85025